=== PATIENT | female | born 1955 | race Caucasian/White ===

== ENCOUNTER → 2017-05-02 | Outpatient (CLI) | payer OTHER ==
--- NOTE | 2017-05-02 16:14 | REP ---
Digital diagnostic bilateral mammography with CAD and focused left breast sonography: History: Palpable abnormality in the left breast times 1 week. 50 pounds weight loss reported in the interval since the last mammogram intentional. The patient status post benign stereotactic needle biopsy left breast in 2007. Comparison mammography 01/06/2016, 07/30/2014, 02/07/2013. Mammographic findings: A skin marker is affixed to the skin at the site of the palpable lump in the left breast which projects directly over the previously biopsied nodule in the left superior breast just lateral to the plane of the nipple. This nodule is unchanged when compared with the 02/07/2013 prior study. It measures 2.9 x 2.0 centimeters it has well-circumscribed margins. There is a needle biopsy marker clip in its center. No other mass lesion is seen. Breast parenchyma is extensively fat replaced otherwise bilaterally. No worrisome skin change is seen. There are normal appearing lymph nodes in each axilla. Focused left breast sonography findings: Scanning at the area of palpable lump at approximately 1-2 o'clock in the left breast demonstrates a isoechoic area displaying heterogeneous interior with some acoustic shadowing measuring 2.2 x 0.8 x 1.9 cm located 7.8 cm from the nipple. This is felt to reflect the previously biopsied nodule. It is unchanged in appearance and size when compared with prior sonography 10/09/2008. Impression: BIRADS category II benign bilateral breast imaging. The palpable lump corresponds to a previously biopsied benign nodule in the left superior breast. This is unchanged since 2007 by ultrasound and stable mammographically. The patient letter being requested is M2. This mammogram was interpreted with the aid of an FDA-approved computer-aided detection system. The patient states that she has not had a clinical breast exam in over a year. Signed by Antonio Fulton MD 05/02/2017 04:49 P
== END ==
LOC: M RAD 12:50
PROVIDERS: ATTEND Emergency Medicine
DX: Z12.31 Encounter for screening mammogram for malignant neoplasm of breast (principal); N63 Unspecified lump in breast
CPT/HCPCS: 76642; G0204

== ENCOUNTER → 2017-10-28 | Outpatient (CLI) | payer OTHER ==
[2017-10-28 19:14] LABS: BASO # 0.1 10^3/uL (0.0-0.2); BASO % 1.1 % (0.0-1.0); EOS # 0.3 10^3/uL (0.0-0.50); EOS % 4.5 % (0.0-3.0); IMMATURE GRANULOCYTE % 0.3 % (0-0); LYMPH # 1.9 10^3/uL (1.5-4.5); LYMPH % 28.6 % (24.0-44.0); MEAN CORPUSCULAR HEMOGLOBIN 14.4 pg (27.0-33.0); MEAN CORPUSCULAR HGB CONC 24.2 g/dl (32.0-36.5); MEAN CORPUSCULAR VOLUME 59.3 fl (80.0-96.0); MONO # 0.5 10^3/uL (0.0-0.8); MONO % 7.7 % (0.0-5.0); NEUTROPHILS # 3.9 10^3/uL (1.8-7.7); NEUTROPHILS % 57.8 % (36.0-66.0); PLATELET COUNT, AUTOMATED 435 10^3/uL (150-450); RED CELL DISTRIBUTION WIDTH 22.5 % (11.5-14.5); WHITE BLOOD COUNT 6.7 10^3/uL (4.0-10.0)
[2017-10-28 19:27] LABS: ALBUMIN 3.8 GM/DL (3.2-5.2); ALBUMIN/GLOBULIN RATIO 1.31 (1.00-1.93); ALKALINE PHOSPHATASE 72 U/L (45-117); ALT/SGPT 18 U/L (12-78); ANION GAP 6 MEQ/L (8-16); AST/SGOT 13 U/L (7-37); BILIRUBIN,TOTAL 0.4 MG/DL (0.2-1.0); BLOOD UREA NITROGEN 13 MG/DL (7-18); CALCIUM LEVEL 8.6 MG/DL (8.5-10.1); CARBON DIOXIDE LEVEL 30 MEQ/L (21-32); CHLORIDE LEVEL 107 MEQ/L (98-107); CREATININE FOR GFR 0.64 MG/DL (0.55-1.02); FREE T4 1.12 NG/DL (0.76-1.46); GLOMERULAR FILTRATION RATE > 60.0 (>51); GLUCOSE, FASTING 79 MG/DL (70-105); POTASSIUM SERUM 4.4 MEQ/L (3.5-5.1); SODIUM LEVEL 143 MEQ/L (136-145); TOTAL PROTEIN 6.7 GM/DL (6.4-8.2)
[2017-10-28 20:28] LABS: ERYTHROCYTE SEDIMENTATION RATE 8 mm/hr (0-30)
== END ==
LOC: M WUC 14:23
PROVIDERS: ATTEND Physician Assistant
DX: R53.83 Other fatigue (principal)

== ENCOUNTER → 2017-10-28 | Outpatient (REF) | payer OTHER | LOC: M LAB REF 16:54 | PROVIDERS: ATTEND Physician Assistant | DX: R30.0 Dysuria (principal) ==

== ENCOUNTER 2017-11-01 12:15 | Outpatient (CLI) | payer OTHER ==
[2017-11-01 12:53] LABS: BASO # 0.1 10^3/uL (0.0-0.2); BASO % 1.4 % (0.0-1.0); EOS # 0.3 10^3/uL (0.0-0.50); EOS % 4.1 % (0.0-3.0); IMMATURE GRANULOCYTE % 0.8 % (0-0); LYMPH % 24.5 % (24.0-44.0); MEAN CORPUSCULAR HEMOGLOBIN 14.7 pg (27.0-33.0); MEAN CORPUSCULAR HGB CONC 24.4 g/dl (32.0-36.5); MEAN CORPUSCULAR VOLUME 60.1 fl (80.0-96.0); MONO # 0.5 10^3/uL (0.0-0.8); MONO % 5.5 % (0.0-5.0); NEUTROPHILS # 5.3 10^3/uL (1.8-7.7); NEUTROPHILS % 63.7 % (36.0-66.0); PLATELET COUNT, AUTOMATED 461 10^3/uL (150-450); WHITE BLOOD COUNT 8.3 10^3/uL (4.0-10.0)
[2017-11-01 13:05] VITALS: BP 125/68
[2017-11-01 13:24] LABS: FREE T4 1.22 NG/DL (0.76-1.46); PERCENT SATURATION 4.6 % (13.2-45.0)
== END 2017-11-01 18:52 | disposition home or self-care (01) ==
LOC: M OPCLI4PR 12:15 → M PED 12:15 → M OPCLI4PR 18:52
PROVIDERS: ATTEND Emergency Medicine
DX: D64.9 Anemia, unspecified (principal)
CPT/HCPCS: 36415; 36430; 80061; 82043; 82306; 83036; 83550; 84439; 84443; 85025; 86850; 86900; 86901; 86920; P9016

== ENCOUNTER → 2017-11-02 | Outpatient (CLI) | payer OTHER ==
[2017-11-02 09:40] LABS: BASO # 0.1 10^3/uL (0.0-0.2); BASO % 1.5 % (0.0-1.0); EOS # 0.3 10^3/uL (0.0-0.50); EOS % 3.8 % (0.0-3.0); IMMATURE GRANULOCYTE % 1.7 % (0-0); LYMPH # 1.9 10^3/uL (1.5-4.5); MEAN CORPUSCULAR HEMOGLOBIN 16.9 pg (27.0-33.0); MEAN CORPUSCULAR HGB CONC 26.5 g/dl (32.0-36.5); MONO # 0.6 10^3/uL (0.0-0.8); NEUTROPHILS # 5.2 10^3/uL (1.8-7.7); PLATELET COUNT, AUTOMATED 430 10^3/uL (150-450); RED CELL DISTRIBUTION WIDTH 28.8 % (11.5-14.5); WHITE BLOOD COUNT 8.3 10^3/uL (4.0-10.0)
== END ==
LOC: M LAB 08:58
PROVIDERS: ATTEND Emergency Medicine
DX: D50.9 Iron deficiency anemia, unspecified (principal)

== ENCOUNTER → 2017-12-19 | Outpatient (REF) | payer OTHER ==
[2017-12-19 19:25] LABS: RETIC HEMOGLOBIN EQUIVALENT 30.6 pg (24-36); RETICULOCYTE # 95.7 10^9/L (17-77); RETICULOCYTE % 1.9 % (0.5-1.5)
[2017-12-19 19:55] LABS: FERRITIN 20 NG/ML (8-252); IRON (FE) 30 UG/DL (50-170); PERCENT SATURATION 7.8 % (13.2-45.0); TOTAL IRON BINDING CAPACITY 383 UG/DL (250-450); TOTAL PROTEIN 7.2 GM/DL (6.4-8.2)
[2017-12-20 11:17] LABS: ALBUMIN % 58.6 % (55.8-66.1); ALPHA-1-GLOBULIN % 4.8 % (2.9-4.9); BETA-1-GLOBULINS % 6.6 % (4.7-7.2); BETA-2-GLOBULINS % 5.4 % (3.2-6.5); GAMMA GLOBULIN % 11.6 % (11.1-18.8)
[2017-12-20 11:18] LABS: ALBUMIN 4.22 GM/DL (3.29-5.55); ALPHA-1-GLOBULINS 0.35 GM/DL (0.17-0.41); ALPHA-2-GLOBULINS 0.94 GM/DL (0.42-0.99); BETA-1-GLOBULINS 0.48 GM/DL (0.28-0.60); BETA-2-GLOBULINS 0.39 GM/DL (0.19-0.55); GAMMA GLOBULINS 0.84 GM/DL (0.65-1.58)
[2017-12-21 08:09] LABS: HAPTOGLOBIN 160 mg/dL (34-200)
== END ==
LOC: M LAB REF 18:16
DX: D50.9 Iron deficiency anemia, unspecified (principal); D64.9 Anemia, unspecified

== ENCOUNTER → 2018-01-06 | Outpatient (CLI) | payer OTHER ==
[2018-01-07 14:10] LABS: TISSUE TRANSGLUTAMINASE IgA <2 U/mL (0-3)
== END ==
LOC: M LAB 07:55
DX: D50.9 Iron deficiency anemia, unspecified (principal)

== ENCOUNTER 2018-01-12 09:20 | Day surgery (SDC) | payer OTHER ==
[~2018-01-12 09:20] MED LIST: LIDOCAINE 2% INJ 100 MG/5 ML SDV (FOR ANES.) As Ordered; PROPOFOL 200 MG/20 ML VIAL As Ordered
[2018-01-12] MEDS: NS 1,000 ML IV (10:30)
== END 2018-01-12 11:39 | disposition home or self-care (01) ==
LOC: M OPP 09:20
DX: K62.1 Rectal polyp (principal); K64.8 Other hemorrhoids; K44.9 Diaphragmatic hernia without obstruction or gangrene; K31.819 Angiodysplasia of stomach and duodenum without bleeding; I10 Essential (primary) hypertension; E11.9 Type 2 diabetes mellitus without complications; J45.909 Unspecified asthma, uncomplicated; G47.30 Sleep apnea, unspecified; Z79.4 Long term (current) use of insulin; Z79.899 Other long term (current) drug therapy
CPT/HCPCS: 45385

== ENCOUNTER → 2018-02-21 | Outpatient (REF) | payer OTHER ==
[2018-02-21 18:11] LABS: FERRITIN 9 NG/ML (8-252); IRON (FE) 37 UG/DL (50-170); PERCENT SATURATION 8.6 % (13.2-45.0); TOTAL IRON BINDING CAPACITY 428 UG/DL (250-450)
== END ==
LOC: M LAB REF 17:10
DX: D50.9 Iron deficiency anemia, unspecified (principal)

== ENCOUNTER 2018-03-31 09:11 | Day surgery (SDC) | payer OTHER ==
[~2018-03-31 09:11] MED LIST changes: -LIDOCAINE 2% INJ 100 MG/5 ML SDV (FOR ANES.) As Ordered
[2018-03-31] MEDS: NS 1,000 ML IV (09:30)
[2018-03-31] MEDS: IPRATROPIUM 0.5MG/ALBUTEROL 2.5MG INH SOL UD 3ML (DUONEB)(J7620) INH (11:22)
[2018-03-31] MEDS ORDERED: PROPOFOL 200 MG/20 ML VIAL As Ordered ×2 (11:58)
== END 2018-03-31 12:25 | disposition home or self-care (01) ==
LOC: M OPP 09:11
DX: K44.9 Diaphragmatic hernia without obstruction or gangrene (principal); K25.9 Gastric ulcer, unspecified as acute or chronic, without hemorrhage or perforation; D50.9 Iron deficiency anemia, unspecified; K31.819 Angiodysplasia of stomach and duodenum without bleeding; E11.9 Type 2 diabetes mellitus without complications; G47.30 Sleep apnea, unspecified; I10 Essential (primary) hypertension; E78.00 Pure hypercholesterolemia, unspecified; E03.9 Hypothyroidism, unspecified; K21.9 Gastro-esophageal reflux disease without esophagitis; J45.909 Unspecified asthma, uncomplicated; M19.90 Unspecified osteoarthritis, unspecified site; Z79.4 Long term (current) use of insulin; Z79.899 Other long term (current) drug therapy; Z98.51 Tubal ligation status; Z91.89 Other specified personal risk factors, not elsewhere classified; Z91.048 Other nonmedicinal substance allergy status
CPT/HCPCS: 43235

== ENCOUNTER → 2018-05-25 | Outpatient (REF) | payer OTHER ==
[2018-05-25 18:23] LABS: FERRITIN 7 NG/ML (8-252); IRON (FE) 37 UG/DL (50-170); TOTAL IRON BINDING CAPACITY 409 UG/DL (250-450)
== END ==
LOC: M LAB REF 16:40
DX: D50.9 Iron deficiency anemia, unspecified (principal)
CPT/HCPCS: 83550

== ENCOUNTER → 2018-07-24 | Outpatient (REF) | payer OTHER ==
[2018-07-24 19:26] LABS: FERRITIN 34 NG/ML (8-252); IRON (FE) 54 UG/DL (50-170); PERCENT SATURATION 16.3 % (13.2-45.0); TOTAL IRON BINDING CAPACITY 331 UG/DL (250-450)
== END ==
LOC: M LAB REF 17:30
DX: D50.9 Iron deficiency anemia, unspecified (principal)

== ENCOUNTER 2018-08-03 14:04 | Emergency (ER) | payer OTHER | END 2018-08-03 16:36 | disposition home or self-care (01) | LOC: M ED 14:04 | DX: T45.4X5A Adverse effect of iron and its compounds, initial encounter (principal); E11.9 Type 2 diabetes mellitus without complications; I10 Essential (primary) hypertension; E03.9 Hypothyroidism, unspecified; K21.9 Gastro-esophageal reflux disease without esophagitis; G47.33 Obstructive sleep apnea (adult) (pediatric) | CPT/HCPCS: 36415 ==

== ENCOUNTER → 2019-04-02 | Outpatient (CLI) | payer OTHER ==
[~2019-04-02] MED LIST changes: +ADV250INH; +ATOR1TAB21; +AUGM500T34 PO; +DIPH25CA PO; +ESOM1CAP5; +HYDR25TAB; +IRON65TA PO; +LEVO150T7; +MELO7.5T35 PO; +MELO7.5T7; +METF500T13; +NEXI40CA PO; +PRED20TA PO; +PROAAER10; -PROPOFOL 200 MG/20 ML VIAL As Ordered; +RAMI1CAP26; +VITA200028 PO; +VITA50005
--- NOTE | 2019-04-02 17:26 | REPMRS ---
Patient History The patient states she has not had a clinical breast exam in over a year. Patient is postmenopausal. No known family history of cancer. Benign stereotactic core biopsy of the left breast, October 30, 2008. Benign excisional biopsy of the left breast, 1999. No Hormone Replacement Therapy 3D TOMOSYNTHESIS WAS PERFORMED. Digital Woman Screen Mammo: April 02, 2019 - Exam #: [id number] Bilateral CC and MLO view(s) were taken. Technologist: Tess Lim, Technologist Prior study comparison: May 02, 2017, digital mammo diagnostic bilateral, performed at [facility]. January 06, 2016, digital woman screen mammo performed at [facility]. FINDINGS: There are scattered fibroglandular densities. There is a fairly symmetric fibroglandular pattern in both breasts. There has been no interval development of masses, areas of architectural distortion or clusters of microcalcifications typical of malignancy. Assessment: BI-RADS/ACR category 2 mammogram. Benign Findings. Recommendation Routine screening mammogram of both breasts in 1 year (for women over age 40). This mammogram was interpreted with the aid of an FDA-approved computer-aided dectection system. Electronically Signed By: Davide Ogden MD 04/02/19 [id number]
== END ==
LOC: M WHC 14:51
PROVIDERS: ATTEND Family Medicine
DX: Z12.31 Encounter for screening mammogram for malignant neoplasm of breast (principal); Z78.0 Asymptomatic menopausal state